=== PATIENT | female | born 1960 | race African-American/Black ===

== ENCOUNTER 2017-07-17 15:52 | Outpatient (CLI) | payer OTHER | END 2017-07-17 19:13 | disposition home or self-care (01) | LOC: MAMMO 15:52 | DX: Z12.31 Encounter for screening mammogram for malignant neoplasm of breast (principal) ==

== ENCOUNTER 2020-07-12 15:16 | Outpatient (CLI) | payer OTHER | END 2020-07-12 20:02 | disposition home or self-care (01) | LOC: MAMMO 15:16 | DX: Z12.31 Encounter for screening mammogram for malignant neoplasm of breast (principal) ==

== ENCOUNTER → 2020-11-21 | Outpatient (CLI) | payer OTHER | LOC: INF 11:42 | PROVIDERS: ATTEND Internal Medicine | DX: Z23 Encounter for immunization (principal) | CPT/HCPCS: 96372 ==

== ENCOUNTER 2020-12-13 14:47 | Outpatient (CLI) | payer OTHER | END 2020-12-13 21:33 | disposition home or self-care (01) | LOC: INF 14:47 | PROVIDERS: ATTEND Internal Medicine | DX: Z23 Encounter for immunization (principal) | CPT/HCPCS: 96372 ==

== ENCOUNTER 2021-03-09 10:33 | Outpatient (CLI) | payer OTHER | END 2021-03-09 19:00 | disposition home or self-care (01) | LOC: RAD 10:33 | PROVIDERS: ATTEND Nurse Practitioner Family | DX: M25.512 Pain in left shoulder (principal) ==

== ENCOUNTER 2022-07-18 20:33 | Emergency (ER) | payer OTHER ==
[~2022-07-18] VITALS: Ht 157.5 cm; Wt 84.8 kg
[2022-07-18 20:37] VITALS: TEMP 96.8
[2022-07-18 21:14] LABS: PLATELET COUNT 250 K/uL (152-353)
[2022-07-18 21:22] LABS: POTASSIUM 3.7 mmol/L (3.6-5.2); SODIUM 135 mmol/L (136-145)
[2022-07-18 23:05] VITALS: BP 135/87
== END 2022-07-18 23:05 | disposition home or self-care (01) ==
LOC: ED 20:33
PROVIDERS: Emergency Medicine Emergency Medical Services
DX: H83.09 Labyrinthitis, unspecified ear (principal); R42 Dizziness and giddiness
CPT/HCPCS: 80048; 83735; 84484; 85027; 93005; 96360; 96375; 99284; J2405; J3490